=== PATIENT | female | born 1955 | race American Indian/Alaskan Native ===

== ENCOUNTER 2017-08-04 11:57 | Day surgery (SDC) | payer OTHER ==
[2017-08-01 19:28] VITALS: BMI 34.5
[2017-08-04 13:18] VITALS: BP 131/73; PULSE 75; TEMP 98
== END 2017-08-04 18:45 | disposition home or self-care (01) ==
LOC: JASU-SURG 11:57 → JSAMEDAYSX 11:57 → UNDOADMIN 11:57 → EDSTATUS 14:00 → UNDODISIN 18:45 → JASU-SURG 18:45
PROVIDERS: ATTEND Orthopaedic Surgery Orthopaedic Surgery of the Spine
PROC: 00NY0ZZ Release Lumbar Spinal Cord, Open Approach (ICD-10-PCS; principal; 2017-08-04)
DX: Z53.8 Procedure and treatment not carried out for other reasons (principal)
CPT/HCPCS: 36415; 84703; 86850; 86900; 86901

== ENCOUNTER 2017-09-08 06:15 | Inpatient (IN) | payer OTHER ==
[2017-09-05 09:18] VITALS: BMI 34.5
[2017-09-08] MEDS ORDERED: HEPARIN NA (PORCINE) 5,000 UNITS/ML 1ML VIAL ONE (07:42)
[2017-09-08] MEDS ORDERED: PROPOFOL 20 ML ONE ×12 (08:00→09:33)
[2017-09-08] MEDS ORDERED: MIDAZOLAM HCL 2 MG/2 ML SINGLE DOSE VIAL ONE (08:00)
[2017-09-08] MEDS ORDERED: ROCURONIUM BROMIDE 50 MG/5 ML VIAL ONE (08:00)
[2017-09-08] MEDS ORDERED: fentaNYL CITRATE 250 MCG/5 ML VIAL ONE (08:00)
[2017-09-08] MEDS ORDERED: SUCCINYLCHOLINE CHLORIDE 200 MG/10 ML VIAL ONE (08:00)
[2017-09-08] MEDS ORDERED: LIDOCAINE HCL/PF 2% SDV 5ML VIAL ONE (08:02)
[2017-09-08] MEDS ORDERED: DESFLURANE GAS 240 ML BOTTLE IH ONE (08:05)
[2017-09-08] MEDS ORDERED: ceFAZolin SODIUM 1 GM VIAL ONE ×3 (08:35→17:18)
[2017-09-08] MEDS ORDERED: CLINDAMYCIN PHOSPHATE 600 MG/4 ML VIAL ONE (08:35)
[2017-09-08] MEDS ORDERED: CLINDAMYCIN PHOSPHATE 600 MG/4 ML VIAL IVPB ONE (08:38)
[2017-09-08] MEDS ORDERED: ceFAZolin SODIUM 1 GM VIAL IVPB ONE ×3 (08:40→09:40)
[2017-09-08] MEDS ORDERED: SODIUM CHLORIDE 0.9% P/F 10 ML VIAL IJ ONE (09:36)
[2017-09-08] MEDS ORDERED: TRANEXAMIC ACID 1000 MG/10 ML VIAL ONE (09:38)
[2017-09-08] MEDS ORDERED: THROMBIN (BOVINE) 5,000 UNIT VIAL TP ONE (09:42)
[2017-09-08] MEDS ORDERED: DEXAMETHASONE SOD PHOSPHATE 4 MG/1 ML VIAL ONE (10:05)
[2017-09-08] MEDS ORDERED: ONDANSETRON 4 MG/2 ML VIAL ONE (10:05)
[2017-09-08] MEDS ORDERED: GLYCOPYRROLATE 0.2 MG/1 ML VIAL ONE (10:46)
[2017-09-08] MEDS ORDERED: NEOSTIGMINE METHYLSULFATE 0.5 MG/ML - 10 ML MDV ONE (10:46)
[2017-09-08] MEDS ORDERED: BENZOIN/ALOE VERA/STORAX/TOLU 58 ML BOTTLE ONE (11:04)
--- NOTE | 2017-09-08 11:57 | OP ---
Operative Note - Note: Operative Date: 09/08/17 Pre-Operative Diagnosis: Thoracic myelopathy Operation: 1. Laminectomy T12. 2. Revision Laminectomies L1-L3 Post-Operative Diagnosis: Same as Pre-op Surgeon: Brian Fernandez Burlap Worker: Levi Fernandez Anesthesiologist/CABLE RIGGER: Mark Anthony Sierra Anesthesia: General Estimated Blood Loss (mls): 75 Fluid Volume Replaced (mls): 1,000 Operative Report Dictated: Yes
--- NOTE | 2017-09-08 11:58 | PN ---
Progress Note (short form) - Note Progress Note: 62F s/p Laminectomy T12 & Revision Laminectomies L1-L3 POD #0. -Pain control: per anaesthesia team. -DVT PPx: - Mechanical only: ADAM's, SCD's. -Incentive spirometry. -PT/OT/Rehab, OOB. -WBAT B/L LE. -q4h B/L LE NV checks. -Post-op antibiotics x 2 doses. -NPO until flatus. -f/u AM labs. -d/c Umana catheter when ambulating. -Care per medical hospitalist team. -Discharge planning. -Will follow. Brian Fernandez MD (Orthopaedic Surgery).
[2017-09-08] MEDS ORDERED: ONDANSETRON 4 MG/2 ML VIAL IVPUSH PRN ×2 (12:05→12:10)
[2017-09-08] MEDS ORDERED: DEXAMETHASONE SOD PHOSPHATE 4 MG/1 ML VIAL IVPUSH PRN (12:10)
[2017-09-08] MEDS ORDERED: PROMETHAZINE HCL 25 MG/1 ML VIAL IVPB PRN (12:10)
[2017-09-08] MEDS ORDERED: PROMETHAZINE HCL 25 MG/1 ML VIAL IVPUSH PRN (12:10)
[2017-09-08] MEDS ORDERED: ACETAMINOPHEN 1000 MG/100 ML VIAL (NON FORMULARY) IVPB SCH (12:15)
[2017-09-08] MEDS: LACTATED RINGERS SOLUTION 1,000 ML IV SCH (12:15)
[2017-09-08] MEDS ORDERED: LACTATED RINGERS SOLUTION 1,000 ML IV SCH (12:15)
[2017-09-08] MEDS: ACETAMINOPHEN 1000 MG/100 ML VIAL (NON FORMULARY) IVPB PRN (12:21)
[2017-09-08] MEDS: HYDROmorphone *PCA* 10MG/50ML DISP.SYRIN PCA SCH (12:37)
[2017-09-08] MEDS: ceFAZolin 2 GRAM PREMIX BAG IVPB SCH (17:24)
[2017-09-08] MEDS ORDERED: PT OWN MED DRAWER 7, Y5N ONE (18:23)
--- NOTE | 2017-09-08 19:00 | OP ---
DATE OF OPERATION: 09/08/2017 SURGEON: Brian Fernandez MD LOGISTICS SUPPLY OFFICER: Levi Fernandez MD PREOPERATIVE DIAGNOSIS: Thoracolumbar spinal stenosis with associated radiculopathy and myelopathy. POSTOPERATIVE DIAGNOSIS: Thoracolumbar spinal stenosis with associated radiculopathy and myelopathy. OPERATION PERFORMED: 1. Laminectomy, T12. 2. Revision laminectomy, L1, L2, and L3. 3. Complex wound closure, 20 cm. PROCEDURE: Patient correctly identified, brought to the operating room, placed prone on a vascular table with gel rolls. Localization of the area of the thoracolumbar spine was noted. Previous fusion noted. The cage proximally was identified at the L2-3 level. Timeout was called. Imaging was available for intraoperative evaluation. With the patient in the prone position, all appropriate bony points were padded, brachial plexus free, belly free. A midline incision extended proximally through the old incision. Dissection was taken through the skin, subcutaneous tissue to the fascia. This was then opened, exposing the lamina of T11 down to L3. The L1, L2, and L3 levels that were dissected by performing oblique incisions under the muscle to get to the facet joints. Verification with a Zahraa and lateral fluoroscopic x-rays facilitated the exact level for resection which was T12 and then revision laminectomies at L1, L2, and L3. A curette was utilized to free the theca off the vertebral canal wall. The T12 lamina was resected in the plane between the bone and the ligamentum flavum. The dura was completely freed after tedious dissection at L1, L2, and L3 to tease the dura off the vertebral body wall itself. There were no complications. We left the facets structured in situ. This revealed the presence of no features of any deteriorated instability. Neural monitoring, which was performed, revealed left-sided abnormalities which, following decompression, revealed a dramatic improvement following this. The L5-S1 level was looked at with fluoroscopic imaging, going live, applying pressure to the sacral region. The construct originally seated at L5-S1 was completely stable. No complications. Wound was closed, muscle 1 Vicryl, fascia 1 Vicryl. Two intra osseous spinal lamina holes made for suture anchorage. Fascia 1 Vicryl, subcutaneous 1 and 2-0 Vicryl, skin 3-0 Monocryl with Steri-Strips. No drains. This completed a 20-cm complex wound closure. MD SARA Rodriguez/[id number] MTDD
[2017-09-08] MEDS ORDERED: HYDROmorphone *PCA* 10MG/50ML DISP.SYRIN PCA ONE (21:19)
[2017-09-09] MEDS: ceFAZolin 2 GRAM PREMIX BAG IVPB SCH (01:00)
[2017-09-09] MEDS ORDERED: PT OWN MED DRAWER 7, Y5N ONE (04:37)
[2017-09-09 07:09] LABS: HEMATOCRIT 36.7 % (32.4-45.2); HEMOGLOBIN 12.2 GM/dL (10.7-15.3); MCH 30.2 pg (25.7-33.7); MCHC 33.2 g/dl (32.0-36.0); MEAN CELL VOLUME 90.9 fl (80-96); MEAN PLT VOLUME 8.2 fl (7.5-11.1); PLATELET COUNT 245 K/MM3 (134-434); RBC 4.04 M/mm3 (3.60-5.2); RDW 13.2 % (11.6-15.6); WHITE BLOOD COUNT 8.5 K/mm3 (4.0-10.0)
[2017-09-09 07:29] LABS: CHLORIDE 101 mmol/L (98-107); POTASSIUM 4.6 mmol/L (3.5-5.1); SODIUM 138 mmol/L (136-145)
[2017-09-09 07:37] LABS: ANION GAP 7 (8-16); BLOOD UREA NITROGEN 14 mg/dL (7-18); CALCIUM 9.2 mg/dL (8.5-10.1); CO2 30 mmol/L (21-32); CREATININE 0.9 mg/dL (0.55-1.02); GLUCOSE,RANDOM 96 mg/dL (74-106)
[2017-09-09] MEDS: HYDROmorphone *PCA* 10MG/50ML DISP.SYRIN PCA SCH ×2 (08:29→12:36)
--- NOTE | 2017-09-09 09:01 | PN ---
Physical Exam: SUBJECTIVE: Patient seen and examined at bed side this morning. Complaining of pain at the surgical site. Has been using PIPE MAKER pump round the clock with additional Tylenol. Denies numbness, tingling sensation, no focal neurological deficit, chest pain, sob, cough, palpitation, abdominal pain, nausea or vomiting. Hasn't passed flatus. OBJECTIVE: Vital Signs Period Temp Pulse Resp BP Sys/Coles Pulse Ox Last 24 Hr 97.6 F-98.5 F 65-86 10-20 103-135/59-80 99-100 GENERAL: Middle aged female is lying in bed in right lateral position, awake, alert, and fully oriented, in no acute distress. HEAD: Normal with no signs of trauma. EYES: EOM intact, no pallor or icterus. ENT: Ears normal, dry mucous membranes. NECK: Supple. LUNGS: Breath sounds equal, clear to auscultation bilaterally, no wheezes, no crackles, no accessory muscle use. HEART: Regular rate and rhythm, S1, S2 without murmur. ABDOMEN: Soft, nontender, nondistended, normoactive bowel sounds, no guarding, no rebound, no hepatosplenomegaly, no masses. BACK: Dressing applied over the surgical site. EXTREMITIES: 2+ pulses, warm, well-perfused, no edema. NEUROLOGICAL: No facial droop, power 5/5 in all extremities. Normal speech, gait not observed. PSYCH: Normal mood, normal affect. SKIN: Warm, dry, normal turgor, no rashes or lesions noted Laboratory Results - last 24 hr 09/09/17 09/09/17 06:15 06:15 WBC 8.5 RBC 4.04 Hgb 12.2 Hct 36.7 MCV 90.9 MCH 30.2 MCHC 33.2 RDW 13.2 Plt Count 245 MPV 8.2 Sodium 138 Potassium 4.6 Chloride 101 Carbon Dioxide 30 Anion Gap 7 L BUN 14 Creatinine 0.9 Creat Clearance w eGFR > 60 Random Glucose 96 Calcium 9.2 Active Medications Generic Name Dose Route Start Last Admin Trade Name Freq PRN Reason Stop Dose Admin Acetaminophen 1,000 mg 09/08/17 12:12 09/08/17 12:21 Ofirmev Injection - IVPB 1,000 mg Q6H PRN Administration PAIN LEVEL 6-10 Dexamethasone Sodium Phosphate 4 mg 09/08/17 12:10 Decadron Injection - IVPUSH ONCE PRN NAUSEA AND/OR VOMITING Diphenhydramine HCl 12.5 mg 09/08/17 12:10 Benadryl Injection - IVPUSH ONCE PRN FOR ITCHING Hydromorphone HCl 0 mg 09/08/17 12:15 09/09/17 08:29 Dilaudid Brand Mgr - PIPE MAKER 09/15/17 12:11 30 mg PIPE MAKER JARRETT Administration Protocol Lactated Ringer's 1,000 mls @ 100 mls/hr 09/08/17 12:15 09/08/17 12:15 Lactated Ringers Solution IV 600 mls ASDIR JARRETT Administration Ondansetron HCl 4 mg 09/08/17 12:05 Zofran Injection IVPUSH Q6H PRN NAUSEA AND/OR VOMITING Ondansetron HCl 4 mg 09/08/17 12:10 Zofran Injection IVPUSH Q4H PRN NAUSEA AND/OR VOMITING Promethazine HCl 12.5 mg 09/08/17 12:10 Phenergan Injection - IVPB Q6H PRN NAUSEA AND/OR VOMITING ASSESSMENT/PLAN: Patient is a 62 year old female with significant past medical history of chronic back pain, chronic hip pain, Rheumatoid arthritis, Fibromyalgia, Anxiety came in to the hospital for an Elective surgery for back pain. # Thoracic myelopathy s/p Laminectomy T12 and Revision Laminectomies L1-L3----- POD 1 complaining of pain at the surgical site, as per the patient, PIPE MAKER pump is not helping her EBL 75 ml, fluid replaced 1000 ml Admitted in Med-Surg Hasn't passed flatus, Still NPO with ice chips Continue PIPE MAKER pump OOB to chair PT Incentive Spirometer Neuro checks Q4H Will d/c lim once she is out of bed # FEN IV LR @ 100 mls/hr Electrolytes WNL NPO except Ice chips # Prophylaxis For DVT: On SCD's For GI: Not indicated # Code Status: Full Code # Dispo: Admitted in Med-Surg. Discharge as per Dr. Fernandez Illness, Investigation and plan of care explained to the patient. She verbalized understanding. Case discussed with Dr. Gonzalez. Visit type - Emergency Visit Emergency Visit: Yes ED Registration Date: 09/08/17 Care time: The patient presented to the Emergency Department on the above date and was hospitalized for further evaluation of their emergent condition. - New Patient This patient is new to me today: Yes Date on this admission: 09/08/17 - Critical Care Critical Care patient: No - Discharge Referral Referred to [facility] Med P.C.: No
[2017-09-09] MEDS: ACETAMINOPHEN 1000 MG/100 ML VIAL (NON FORMULARY) IVPB PRN ×2 (12:13→17:57)
--- NOTE | 2017-09-09 12:30 | PN ---
Progress Note (short form) - Note Progress Note: Anesthesia postop note and pain management follow up 62 y/o F s/p GA revision of laminectomy, director loss prevention for postop pain management POD#1, aaox3, vss, pain fairly well controlled. Will continue director loss prevention. No anesthesia complications.
[2017-09-09] MEDS: LACTATED RINGERS SOLUTION 1,000 ML IV SCH ×2 (12:35→12:39)
--- NOTE | 2017-09-09 14:15 | PN ---
Teaching Attending Note Name of Resident: Tana Cifuentes ATTENDING PHYSICIAN STATEMENT I saw and evaluated the patient. I reviewed the resident's note and discussed the case with the resident. I agree with the resident's findings and plan as documented. SUBJECTIVE: Patient complains of pain at the incision site. OBJECTIVE: Vital Signs Period Temp Pulse Resp BP Sys/Coles Pulse Ox Last 24 Hr 97.6 F-98.5 F 66-93 10-20 104-135/58-80 99-100 HEART: S1S2, RRR LUNGS: Clear ABDOMEN: Obese, soft, non-tender, non-distended, normal BS EXTREMITIES: No edema Laboratory Results - last 24 hr 09/09/17 09/09/17 06:15 06:15 WBC 8.5 RBC 4.04 Hgb 12.2 Hct 36.7 MCV 90.9 MCH 30.2 MCHC 33.2 RDW 13.2 Plt Count 245 MPV 8.2 Sodium 138 Potassium 4.6 Chloride 101 Carbon Dioxide 30 Anion Gap 7 L BUN 14 Creatinine 0.9 Creat Clearance w eGFR > 60 Random Glucose 96 Calcium 9.2 Current Medications Generic Name Dose Route Start Last Admin Trade Name Freq PRN Reason Stop Dose Admin Acetaminophen 1,000 mg 09/08/17 12:12 09/09/17 12:13 Ofirmev Injection - IVPB 1,000 mg Q6H PRN Administration PAIN LEVEL 6-10 Dexamethasone Sodium Phosphate 4 mg 09/08/17 12:10 Decadron Injection - IVPUSH ONCE PRN NAUSEA AND/OR VOMITING Diphenhydramine HCl 12.5 mg 09/08/17 12:10 Benadryl Injection - IVPUSH ONCE PRN FOR ITCHING Hydromorphone HCl 10 mg 09/09/17 10:41 09/09/17 12:36 Dilaudid Retail Merchandising Specialist - FRAME POLISHER 09/15/17 12:11 Not Given FRAME POLISHER JARRETT Protocol Lactated Ringer's 1,000 mls @ 100 mls/hr 09/08/17 12:15 09/09/17 12:39 Lactated Ringers Solution IV 100 mls/hr ASDIR JARRETT Administration Ondansetron HCl 4 mg 09/08/17 12:05 Zofran Injection IVPUSH Q6H PRN NAUSEA AND/OR VOMITING Ondansetron HCl 4 mg 09/08/17 12:10 Zofran Injection IVPUSH Q4H PRN NAUSEA AND/OR VOMITING Promethazine HCl 12.5 mg 09/08/17 12:10 Phenergan Injection - IVPB Q6H PRN NAUSEA AND/OR VOMITING ASSESSMENT AND PLAN: This is a 62 year old woman with a history of chronic back pain, chronic hip pain, RA, fibromyalgia, anxiety who presented for spine surgery. 1. Thoracic myelopathy - s/p T12 laminectomy, L1-L3 revision laminectomies 09/08 - Pain control - Physical therapy 2. Rheumatoid arthritis 3. Fibromyalgia 4. Anxiety 5. Obesity with BMI 34.6
[2017-09-09] MEDS ORDERED: PANTOPRAZOLE SODIUM 40 MG VIAL IVPUSH ONE (20:25)
[2017-09-10] MEDS: ACETAMINOPHEN 1000 MG/100 ML VIAL (NON FORMULARY) IVPB PRN ×3 (00:01→21:47)
[2017-09-10] MEDS: HYDROmorphone *PCA* 10MG/50ML DISP.SYRIN PCA SCH ×2 (02:55→12:53)
[2017-09-10] MEDS ORDERED: ACETAMINOPHEN 325 MG TABLET (FP) PO ONE (06:31)
[2017-09-10 07:45] LABS: HEMATOCRIT 34.2 % (32.4-45.2); HEMOGLOBIN 11.4 GM/dL (10.7-15.3); MCH 30.2 pg (25.7-33.7); MCHC 33.5 g/dl (32.0-36.0); MEAN CELL VOLUME 90.2 fl (80-96); MEAN PLT VOLUME 8.4 fl (7.5-11.1); PLATELET COUNT 208 K/MM3 (134-434); RBC 3.79 M/mm3 (3.60-5.2); RDW 13.2 % (11.6-15.6); WHITE BLOOD COUNT 7.5 K/mm3 (4.0-10.0)
--- NOTE | 2017-09-10 07:49 | PN ---
Physical Exam: SUBJECTIVE: Patient seen and examined. On CHIEF GUARD pump. Still c/o of pain. Wants her home meds on board. Temperature spike up to 101.2 in past 24hrs. Said she is unable to eat without her nexium. OBJECTIVE: Vital Signs Period Temp Pulse Resp BP Sys/Coles Pulse Ox Last 24 Hr 97.9 F-101.2 F 82-93 16-18 95-127/50-75 98-99 Intake & Output 09/07/17 09/08/17 09/09/17 09/10/17 23:59 23:59 23:59 23:59 Intake Total 2232 1650 Output Total 3425 3900 Balance -1193 -2250 Vital Signs Temp 98.3 F 09/10/17 06:00 Pulse 93 H 09/10/17 06:00 Resp 18 09/10/17 06:00 BP 127/75 09/10/17 06:00 Pulse Ox 98 09/09/17 21:00 Intake & Output 09/09/17 09/09/17 09/10/17 11:59 23:59 11:59 Intake Total 100 1550 Output Total 3900 Balance 100 -2350 Intake: IV 1200 Lactated Ringers Solution 1200 1,000 ml @ 100 mls/hr IV ASDIR [facility] Rx#: [id number] IVPB 100 100 Oral 250 Output: Urine 3900 Lim 2500 Void 1400 Other: Voiding Method Bedside Commode Bowel Movement No No GENERAL: The patient is awake, alert, and fully oriented, lying in bed LUNGS: Breath sounds equal, clear to auscultation bilaterally, HEART: Regular rate and rhythm, S1, S2 without murmur, rub or gallop. ABDOMEN: Soft, nontender, nondistended, normoactive bowel sounds EXTREMITIES: 2+ pulses, warm, well-perfused, no edema. Able to move all limbs. NEUROLOGICAL: AAOx3. Intact sensations. Normal tone and strength globally. Musculoskeletal: Back surgical dressing from cervical vertebrae to lumbar area, dry and intact CBC, BMP 09/10/17 06:30 09/10/17 06:30 Laboratory Last Values WBC 8.5 K/mm3 (4.0-10.0) 09/09/17 06:15 RBC 4.04 M/mm3 (3.60-5.2) 09/09/17 06:15 Hgb 12.2 GM/dL (10.7-15.3) 09/09/17 06:15 Hct 36.7 % (32.4-45.2) 09/09/17 06:15 MCV 90.9 fl (80-96) 09/09/17 06:15 MCH 30.2 pg (25.7-33.7) 09/09/17 06:15 MCHC 33.2 g/dl (32.0-36.0) 09/09/17 06:15 RDW 13.2 % (11.6-15.6) 09/09/17 06:15 Plt Count 245 K/MM3 (134-434) 09/09/17 06:15 MPV 8.2 fl (7.5-11.1) 09/09/17 06:15 Sodium 138 mmol/L (136-145) 09/09/17 06:15 Potassium 4.6 mmol/L (3.5-5.1) 09/09/17 06:15 Chloride 101 mmol/L (98-107) 09/09/17 06:15 Carbon Dioxide 30 mmol/L (21-32) 09/09/17 06:15 Anion Gap 7 (8-16) L 09/09/17 06:15 BUN 14 mg/dL (7-18) 09/09/17 06:15 Creatinine 0.9 mg/dL (0.55-1.02) 09/09/17 06:15 Creat Clearance w eGFR > 60 (>60) 09/09/17 06:15 Random Glucose 96 mg/dL (74-106) 09/09/17 06:15 Calcium 9.2 mg/dL (8.5-10.1) 09/09/17 06:15 Blood Type A POSITIVE 09/08/17 06:25 Antibody Screen Negative 09/08/17 06:25 Current Medications Acetaminophen (Ofirmev Injection -) 1,000 mg IVPB Q6H PRN PRN Reason: PAIN LEVEL 6-10 Last Admin: 09/10/17 21:47 Dose: 1,000 mg Cyclobenzaprine HCl (Flexeril -) 10 mg PO HS JARRETT Last Admin: 09/10/17 21:41 Dose: 10 mg Dexamethasone Sodium Phosphate (Decadron Injection -) 4 mg IVPUSH ONCE PRN PRN Reason: NAUSEA AND/OR VOMITING Last Admin: 09/10/17 06:57 Dose: 4 mg Diphenhydramine HCl (Benadryl Injection -) 12.5 mg IVPUSH ONCE PRN PRN Reason: FOR ITCHING Docusate Sodium (Colace -) 100 mg PO BID PRN PRN Reason: CONSTIPATION Gabapentin (Neurontin -) 300 mg PO DAILY [facility] Last Admin: 09/10/17 09:38 Dose: 300 mg Hydromorphone HCl (Dilaudid Space Engineer -) 10 mg CHIEF GUARD CHIEF GUARD [facility]; Protocol Stop: 09/15/17 12:11 Last Admin: 09/11/17 02:14 Dose: 10 mg Lactated Ringer's (Lactated Ringers Solution) 1,000 mls @ 100 mls/hr IV ASDIR [facility] Last Admin: 09/10/17 21:43 Dose: 100 mls/hr Ondansetron HCl (Zofran Injection) 4 mg IVPUSH Q6H PRN PRN Reason: NAUSEA AND/OR VOMITING Ondansetron HCl (Zofran Injection) 4 mg IVPUSH Q4H PRN PRN Reason: NAUSEA AND/OR VOMITING Pantoprazole Sodium (Protonix -) 40 mg PO DAILY [facility] Last Admin: 09/10/17 09:38 Dose: 40 mg Polyethylene Glycol (Miralax (For Daily Use) -) 17 gm PO DAILY [facility] Last Admin: 09/10/17 09:38 Dose: 17 gm Promethazine HCl (Phenergan Injection -) 12.5 mg IVPB Q6H PRN PRN Reason: NAUSEA AND/OR VOMITING Senna (Senna -) 2 tab PO HS [facility] Last Admin: 09/10/17 21:42 Dose: 2 tab Zolpidem Tartrate (Ambien -) 5 mg PO HS PRN PRN Reason: INSOMNIA Last Admin: 09/10/17 23:01 Dose: 5 mg Ambulatory Orders Acetaminophen [Tylenol] 650 mg PO PRN PRN 08/01/17 Celecoxib [Celebrex] 200 mg PO BID 08/01/17 Cyclobenzaprine HCl [Flexeril 10 mg] 10 mg PO HS 08/01/17 Esomeprazole Magnesium [Nexium 24Hr] 40 mg PO DAILY 08/01/17 Gabapentin [Neurontin] 300 mg PO DAILY 08/01/17 Oxycodone HCl [Oxycodone HCl ER] 30 mg PO PRN PRN 08/01/17 Zolpidem Tartrate [Ambien] 5 mg PO HS 08/01/17 ASSESSMENT/PLAN: Patient is a 62 year old female with significant past medical history of chronic back pain, chronic hip pain, Rheumatoid arthritis, Fibromyalgia, Anxiety came in to the hospital for an Elective surgery for back pain. # Thoracic myelopathy s/p Laminectomy T12 and Revision Laminectomies L1-L3 POD 2 complaining of pain at the surgical site, as per the patient, CHIEF GUARD pump is not helping her, cont home flexeril, neurontin EBL 75 ml, fluid replaced 1000 ml Admitted in Med-Surg Yet to move bowel-colace and senna Continue CHIEF GUARD pump OOB to chair PT Incentive Spirometer Neuro checks Q4H Will d/c lim once she is out of bed #Post op fever Could be due to atelectasis Encourage incentive spirometry PT OOB as tolerated Monitor Temp # Constipation Could be due to chronic opiate use/pain Bowel regimen-colace and senna #GERD Uses nexium at home Given protonix- says protonix does not work for her Monitor #Chronic pain Pt has had 3 previous back surgeries Cont CHIEF GUARD pump resume home flexeril, neurontin # FEN IV LR @ 100 mls/hr Electrolytes WNL Regular diet as tolerated #Dispo: Dispo planning per SX Visit type - Emergency Visit Emergency Visit: No - New Patient This patient is new to me today: Yes Date on this admission: 09/11/17 - Critical Care Critical Care patient: No - Discharge Referral Referred to [facility] Med P.C.: No
[2017-09-10 08:09] LABS: ANION GAP 7 (8-16); BLOOD UREA NITROGEN 7 mg/dL (7-18); CALCIUM 8.6 mg/dL (8.5-10.1); CHLORIDE 100 mmol/L (98-107); CO2 32 mmol/L (21-32); CREATININE 0.7 mg/dL (0.55-1.02); GLUCOSE,RANDOM 91 mg/dL (74-106); POTASSIUM 3.8 mmol/L (3.5-5.1); SODIUM 139 mmol/L (136-145)
[2017-09-10] MEDS ORDERED: DOCUSATE SODIUM 100 MG CAPSULE (FP) PO PRN (08:20)
[2017-09-10] MEDS: GABAPENTIN 300 MG CAPSULE (FP) PO SCH (09:38)
[2017-09-10] MEDS: POLYETHYLENE GLYCOL 3350 119 GM BTL PO SCH (09:38)
--- NOTE | 2017-09-10 09:39 | PN ---
Progress Note, Physician Chief Complaint: Day #2 s/p revision laminectomy - Current Medication List Current Medications: Active Medications Cyclobenzaprine HCl (Flexeril -) 10 mg PO HS JARRETT Dexamethasone Sodium Phosphate (Decadron Injection -) 4 mg IVPUSH ONCE PRN PRN Reason: NAUSEA AND/OR VOMITING Last Admin: 09/10/17 06:57 Dose: 4 mg Diphenhydramine HCl (Benadryl Injection -) 12.5 mg IVPUSH ONCE PRN PRN Reason: FOR ITCHING Docusate Sodium (Colace -) 100 mg PO BID PRN PRN Reason: CONSTIPATION Gabapentin (Neurontin -) 300 mg PO DAILY [facility] Hydromorphone HCl (Dilaudid Prevocational/Rehabilitation Counselor -) 10 mg PREPRESS SPECIALIST [facility]; Protocol Stop: 09/15/17 12:11 Last Admin: 09/10/17 02:55 Dose: 10 mg Lactated Ringer's (Lactated Ringers Solution) 1,000 mls @ 100 mls/hr IV ASDIR JARRETT Last Admin: 09/09/17 12:39 Dose: 100 mls/hr Ondansetron HCl (Zofran Injection) 4 mg IVPUSH Q6H PRN PRN Reason: NAUSEA AND/OR VOMITING Ondansetron HCl (Zofran Injection) 4 mg IVPUSH Q4H PRN PRN Reason: NAUSEA AND/OR VOMITING Pantoprazole Sodium (Protonix -) 40 mg PO DAILY [facility] Polyethylene Glycol (Miralax (For Daily Use) -) 17 gm PO DAILY [facility] Promethazine HCl (Phenergan Injection -) 12.5 mg IVPB Q6H PRN PRN Reason: NAUSEA AND/OR VOMITING Senna (Senna -) 2 tab PO HS [facility] Zolpidem Tartrate (Ambien -) 5 mg PO HS PRN PRN Reason: INSOMNIA - Objective Vital Signs: Vital Signs Temperature 98.3 F 09/10/17 06:00 Pulse Rate 93 H 09/10/17 06:00 Respiratory Rate 18 09/10/17 06:00 Blood Pressure 127/75 09/10/17 06:00 O2 Sat by Pulse Oximetry (%) 98 09/09/17 21:00 Labs: CBC, BMP 09/10/17 06:30 09/10/17 06:30 Assessment/Plan Some incisional pain, but overall good pain control; continue PREPRESS SPECIALIST
[2017-09-10] MEDS: LACTATED RINGERS SOLUTION 1,000 ML IV SCH ×3 (09:41→21:43)
[2017-09-10] MEDS ORDERED: PANTOPRAZOLE 40 MG TABLET (FP) PO SCH (10:00)
--- NOTE | 2017-09-10 18:03 | PN ---
Teaching Attending Note Name of Resident: Maliha Donovan ATTENDING PHYSICIAN STATEMENT I saw and evaluated the patient. I reviewed the resident's note and discussed the case with the resident. I agree with the resident's findings and plan as documented with exceptions below. SUBJECTIVE: Patient seen and examined. sleeping, pain well controlled, reports hip spasms while ambulating limiting her working with PT. tolerating diet well. OBJECTIVE: Vital Signs Period Temp Pulse Resp BP Sys/Coles Pulse Ox Last 24 Hr 98.3 F-101.2 F 87-114 16-87 95-136/8-89 98-98 Intake & Output 09/07/17 09/08/17 09/09/17 09/10/17 23:59 23:59 23:59 23:59 Intake Total 2232 1650 Output Total 3426 3900 Balance -1193 -2250 general: lying in bed in no acute distress chest: CTAB, no rales or wheezing Musculoskeletal: vertical dressing along thorolumbar spinal region, no surrounding erythema or tenderness Extremities; no edema Home Medications Medication Instructions Recorded Acetaminophen [Tylenol] 650 mg PO PRN PRN 08/01/17 Celecoxib [Celebrex] 200 mg PO BID 08/01/17 Cyclobenzaprine HCl [Flexeril 10 10 mg PO HS 08/01/17 mg] Esomeprazole Magnesium [Nexium 40 mg PO DAILY 08/01/17 24Hr] Gabapentin [Neurontin] 300 mg PO DAILY 08/01/17 Oxycodone HCl [Oxycodone HCl ER] 30 mg PO PRN PRN 08/01/17 Zolpidem Tartrate [Ambien] 5 mg PO HS 08/01/17 Active Medications Acetaminophen (Ofirmev Injection -) 1,000 mg IVPB Q6H PRN PRN Reason: PAIN LEVEL 6-10 Last Admin: 09/10/17 14:40 Dose: 1,000 mg Cyclobenzaprine HCl (Flexeril -) 10 mg PO HS [facility] Dexamethasone Sodium Phosphate (Decadron Injection -) 4 mg IVPUSH ONCE PRN PRN Reason: NAUSEA AND/OR VOMITING Last Admin: 09/10/17 06:57 Dose: 4 mg Diphenhydramine HCl (Benadryl Injection -) 12.5 mg IVPUSH ONCE PRN PRN Reason: FOR ITCHING Docusate Sodium (Colace -) 100 mg PO BID PRN PRN Reason: CONSTIPATION Gabapentin (Neurontin -) 300 mg PO DAILY [facility] Last Admin: 09/10/17 09:38 Dose: 300 mg Hydromorphone HCl (Dilaudid Studio Engineer -) 10 mg RELAY ASSOCIATE RELAY ASSOCIATE [facility]; Protocol Stop: 09/15/17 12:11 Last Admin: 09/10/17 12:53 Dose: Not Given Lactated Ringer's (Lactated Ringers Solution) 1,000 mls @ 100 mls/hr IV ASDIR [facility] Last Admin: 09/10/17 12:52 Dose: Not Given Ondansetron HCl (Zofran Injection) 4 mg IVPUSH Q6H PRN PRN Reason: NAUSEA AND/OR VOMITING Ondansetron HCl (Zofran Injection) 4 mg IVPUSH Q4H PRN PRN Reason: NAUSEA AND/OR VOMITING Pantoprazole Sodium (Protonix -) 40 mg PO DAILY [facility] Last Admin: 09/10/17 09:38 Dose: 40 mg Polyethylene Glycol (Miralax (For Daily Use) -) 17 gm PO DAILY [facility] Last Admin: 09/10/17 09:38 Dose: 17 gm Promethazine HCl (Phenergan Injection -) 12.5 mg IVPB Q6H PRN PRN Reason: NAUSEA AND/OR VOMITING Senna (Senna -) 2 tab PO HS [facility] Zolpidem Tartrate (Ambien -) 5 mg PO HS PRN PRN Reason: INSOMNIA Laboratory Results - last 24 hr 09/10/17 09/10/17 06:30 06:30 WBC 7.5 RBC 3.79 Hgb 11.4 Hct 34.2 MCV 90.2 MCH 30.2 MCHC 33.5 RDW 13.2 Plt Count 208 MPV 8.4 Sodium 139 Potassium 3.8 Chloride 100 Carbon Dioxide 32 Anion Gap 7 L BUN 7 Creatinine 0.7 Creat Clearance w eGFR > 60 Random Glucose 91 Calcium 8.6 ASSESSMENT AND PLAN: 62 yof with pMhx of chronic back pain, chronic hip pain, Rheumatoid arthritis, Fibromyalgia, Anxiety came in to the hospital for an Elective surgery for back pain. - Thoracic myelopathy s/p Laminectomy T12 and Revision Laminectomies L1-L3 09/08) -fever, suspect atelectasis -Chronic hip pain -Rheumatoid arthritis -Fibromyalgia -Anxiety Plan: RELAY ASSOCIATE for pain control, d/c in 24-48 hours. Resume flexeril per patient request. No further fevers, encourage ambulation and incentive spirometry. Furhter w/u if recurrent fevers or new concerns. Currently with no new focal symptoms. DVTPPx per spine surgery DIspo pending clinical improvement, plan discussed with patient in detail, all questions answered.
[2017-09-10] MEDS: CYCLOBENZAPRINE HCL 10 MG TABLET (FP) PO SCH (21:41)
[2017-09-10] MEDS: SENNOSIDES 8.6MG TABLET (FP) PO SCH (21:42)
[2017-09-10] MEDS: ZOLPIDEM TARTRATE 5 MG TABLET PO PRN (23:01)
[2017-09-11] MEDS: HYDROmorphone *PCA* 10MG/50ML DISP.SYRIN PCA SCH (02:14)
[2017-09-11 07:45] LABS: HEMATOCRIT 31.9 % (32.4-45.2); HEMOGLOBIN 10.8 GM/dL (10.7-15.3); MCH 30.4 pg (25.7-33.7); MCHC 33.8 g/dl (32.0-36.0); MEAN CELL VOLUME 90.2 fl (80-96); MEAN PLT VOLUME 8.7 fl (7.5-11.1); PLATELET COUNT 227 K/MM3 (134-434); RBC 3.53 M/mm3 (3.60-5.2); RDW 12.8 % (11.6-15.6); WHITE BLOOD COUNT 7.2 K/mm3 (4.0-10.0)
[2017-09-11 08:46] LABS: CHLORIDE 101 mmol/L (98-107); POTASSIUM 4.1 mmol/L (3.5-5.1); SODIUM 140 mmol/L (136-145)
[2017-09-11 09:21] LABS: ALBUMIN 2.6 g/dl (3.4-5.0); ALK PHOS 105 U/L (45-117); ANION GAP 9 (8-16); BILIRUBIN,TOTAL 0.6 mg/dL (0.2-1.0); BLOOD UREA NITROGEN 14 mg/dL (7-18); CALCIUM 8.4 mg/dL (8.5-10.1); CO2 30 mmol/L (21-32); CREATININE 0.6 mg/dL (0.55-1.02); GLUCOSE,RANDOM 86 mg/dL (74-106); MAGNESIUM 1.7 mg/dL (1.8-2.4); PHOSPHOROUS 2.9 mg/dL (2.5-4.9); SGOT/AST 33 U/L (15-37); SGPT/ALT 54 U/L (12-78); TOT PROT 5.8 g/dl (6.4-8.2)
--- NOTE | 2017-09-11 10:02 | PN ---
Progress Note (short form) - Note Progress Note: Pain Follow up POD#3 Discontinue IV UTILIZATION MANAGER. oral oxycodone can be started po q4. Janet Pinedo MD.
[2017-09-11] MEDS ORDERED: oxyCODONE HCL 5 MG TABLET PO ONE (10:30)
[2017-09-11] MEDS ORDERED: ACETAMINOPHEN 325 MG TABLET (FP) PO ONE (10:30)
[2017-09-11] MEDS: PANTOPRAZOLE 40 MG TABLET (FP) PO SCH (10:58)
[2017-09-11] MEDS: GABAPENTIN 300 MG CAPSULE (FP) PO SCH (10:58)
[2017-09-11] MEDS: POLYETHYLENE GLYCOL 3350 119 GM BTL PO SCH (10:58)
[2017-09-11] MEDS: ACETAMINOPHEN 325 MG TABLET (FP) PO PRN ×2 (10:59→20:16)
[2017-09-11] MEDS: oxyCODONE HCL 5 MG TABLET PO PRN ×3 (11:00→20:14)
--- NOTE | 2017-09-11 15:21 | PN ---
Teaching Attending Note Name of Resident: Maliha Donovan ATTENDING PHYSICIAN STATEMENT I saw and evaluated the patient. I reviewed the resident's note and discussed the case with the resident. I agree with the resident's findings and plan as documented with exceptions below. SUBJECTIVE: Patient seen and examined. back pain improved, having a BM, tolerating diet well. OBJECTIVE: Vital Signs Period Temp Pulse Resp BP Sys/Coles Pulse Ox Last 24 Hr 98.2 F-98.9 F 65-100 18-20 114-132/66-69 98 Intake & Output 09/08/17 09/09/17 09/10/17 09/11/17 23:59 23:59 23:59 23:59 Intake Total 2232 1650 250 Output Total 3425 3900 350 Balance -1193 -2250 -100 General: sitting on commode, no acute distress Home Medications Medication Instructions Recorded Acetaminophen [Tylenol] 650 mg PO PRN PRN 08/01/17 Celecoxib [Celebrex] 200 mg PO BID 08/01/17 Cyclobenzaprine HCl [Flexeril 10 10 mg PO 08/01/17 mg] Esomeprazole Magnesium [Nexium 40 mg PO DAILY 08/01/17 24Hr] Gabapentin [Neurontin] 300 mg PO DAILY 08/01/17 Oxycodone HCl [Oxycodone HCl ER] 30 mg PO PRN PRN 08/01/17 Zolpidem Tartrate [Ambien] 5 mg PO HS 08/01/17 Active Medications Acetaminophen (Tylenol -) 650 mg PO Q4H PRN PRN Reason: MODERATE PAIN Last Admin: 09/11/17 10:59 Dose: 650 mg Cyclobenzaprine HCl (Flexeril -) 10 mg PO [facility] Last Admin: 09/10/17 21:41 Dose: 10 mg Dexamethasone Sodium Phosphate (Decadron Injection -) 4 mg IVPUSH ONCE PRN PRN Reason: NAUSEA AND/OR VOMITING Last Admin: 09/10/17 06:57 Dose: 4 mg Docusate Sodium (Colace -) 100 mg PO BID PRN PRN Reason: CONSTIPATION Gabapentin (Neurontin -) 300 mg PO DAILY [facility] Last Admin: 09/11/17 10:58 Dose: 300 mg Ondansetron HCl (Zofran Injection) 4 mg IVPUSH Q6H PRN PRN Reason: NAUSEA AND/OR VOMITING Ondansetron HCl (Zofran Injection) 4 mg IVPUSH Q4H PRN PRN Reason: NAUSEA AND/OR VOMITING Oxycodone HCl (Roxicodone -) 10 mg PO Q4H PRN PRN Reason: PAIN LEVEL 4 - 6 Last Admin: 09/11/17 11:00 Dose: 10 mg Pantoprazole Sodium (Protonix -) 40 mg PO DAILY [facility] Last Admin: 09/11/17 10:58 Dose: 40 mg Polyethylene Glycol (Miralax (For Daily Use) -) 17 gm PO DAILY [facility] Last Admin: 09/11/17 10:58 Dose: 17 gm Promethazine HCl (Phenergan Injection -) 12.5 mg IVPB Q6H PRN PRN Reason: NAUSEA AND/OR VOMITING Senna (Senna -) 2 tab PO HS [facility] Last Admin: 09/10/17 21:42 Dose: 2 tab Zolpidem Tartrate (Ambien -) 5 mg PO HS PRN PRN Reason: INSOMNIA Last Admin: 09/10/17 23:01 Dose: 5 mg Laboratory Results - last 24 hr 09/11/17 09/11/17 06:40 06:40 WBC 7.2 RBC 3.53 L Hgb 10.8 Hct 31.9 L MCV 90.2 MCH 30.4 MCHC 33.8 RDW 12.8 Plt Count 227 MPV 8.7 Sodium 140 Potassium 4.1 Chloride 101 Carbon Dioxide 30 Anion Gap 9 BUN 14 Creatinine 0.6 Creat Clearance w eGFR > 60 Random Glucose 86 Calcium 8.4 L Phosphorus 2.9 Magnesium 1.7 L Total Bilirubin 0.6 AST 33 ALT 54 Alkaline Phosphatase 105 Total Protein 5.8 L Albumin 2.6 L ASSESSMENT AND PLAN: 62 yof with pMhx of chronic back pain, chronic hip pain, Rheumatoid arthritis, Fibromyalgia, Anxiety came in to the hospital for an Elective surgery for back pain. 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 Bowel regimen. Reconcile home meds, resume once off [employer]PER[employer]. No further fevers, encourage ambulation and incentive spirometry DVTPPx per spine surgery DIspo home d/c later today or tomorrow if no concerns. Cleared by Dr. Calloway for d.c.
--- NOTE | 2017-09-11 16:09 | PN ---
Physical Exam: SUBJECTIVE: Patient seen and examined. Says surgical back pain is improved, but she has chronic pain in R hip. TELLER HEAD is not working for the chronic pain. Yet to move bowel. Has been OOB and into chair and using incentive spirometry. No fevers overnight. Able to eat regular diet OBJECTIVE: Vital Signs Period Temp Pulse Resp BP Sys/Coles Pulse Ox Last 24 Hr 98.2 F-98.9 F 65-100 18-20 100-132/53-69 98 Vital Signs Temp 98.6 F 09/11/17 15:36 Pulse 83 09/11/17 15:36 Resp 18 09/11/17 15:36 BP 100/53 09/11/17 15:36 Pulse Ox 98 09/11/17 09:00 Intake & Output 09/10/17 09/11/17 09/11/17 23:59 11:59 23:59 Intake Total 600 Balance 600 Intake: Oral 600 Other: Voiding Method Bedside Commode Bedside Commode Bedside Commode # Unmeasured Voids Void 2 Bowel Movement Yes Intake & Output 09/08/17 09/09/17 09/10/17 09/11/17 23:59 23:59 23:59 23:59 Intake Total 2232 1650 250 600 Output Total 3425 3900 350 Balance -1193 -2250 -100 600 GENERAL: The patient is awake, alert, and fully oriented, in no acute distress. LUNGS: Breath sounds equal, clear to auscultation bilaterally HEART: Regular rate and rhythm, S1, S2 without murmu ABDOMEN: Soft, nontender, nondistended, normoactive bowel sounds EXTREMITIES: 2+ pulses, warm, well-perfused, no edema. NEUROLOGICAL: AAO x3. Normal sensation bilaterally. Absent tingling. Able to move all extremities Musculoskeletal: Surgical dressing over spine posteriorly from cervical to lumbar region intact, no leaks or drains, no tenderness noted. Laboratory Results - last 24 hr 09/11/17 09/11/17 06:40 06:40 WBC 7.2 RBC 3.53 L Hgb 10.8 Hct 31.9 L MCV 90.2 MCH 30.4 MCHC 33.8 RDW 12.8 Plt Count 227 MPV 8.7 Sodium 140 Potassium 4.1 Chloride 101 Carbon Dioxide 30 Anion Gap 9 BUN 14 Creatinine 0.6 Creat Clearance w eGFR > 60 Random Glucose 86 Calcium 8.4 L Phosphorus 2.9 Magnesium 1.7 L Total Bilirubin 0.6 AST 33 ALT 54 Alkaline Phosphatase 105 Total Protein 5.8 L Albumin 2.6 L Active Medications Generic Name Dose Route Start Last Admin Trade Name Freq PRN Reason Stop Dose Admin Acetaminophen 650 mg 09/11/17 10:28 09/11/17 10:59 Tylenol - PO 650 mg Q4H PRN Administration MODERATE PAIN Cyclobenzaprine HCl 10 mg 09/10/17 22:00 09/10/17 21:41 Flexeril - PO 10 mg HS JARRETT Administration Dexamethasone Sodium Phosphate 4 mg 09/08/17 12:10 09/10/17 06:57 Decadron Injection - IVPUSH 4 mg ONCE PRN Administration NAUSEA AND/OR VOMITING Docusate Sodium 100 mg 09/10/17 08:20 Colace - PO BID PRN CONSTIPATION Gabapentin 300 mg 09/10/17 10:00 09/11/17 10:58 Neurontin - PO 300 mg DAILY JARRETT Administration Ondansetron HCl 4 mg 09/08/17 12:05 Zofran Injection IVPUSH Q6H PRN NAUSEA AND/OR VOMITING Ondansetron HCl 4 mg 09/08/17 12:10 Zofran Injection IVPUSH Q4H PRN NAUSEA AND/OR VOMITING Oxycodone HCl 10 mg 09/11/17 10:24 09/11/17 16:05 Roxicodone - PO 10 mg Q4H PRN Administration PAIN LEVEL 4 - 6 Pantoprazole Sodium 40 mg 09/11/17 10:00 09/11/17 10:58 Protonix - PO 40 mg DAILY JARRETT Administration Polyethylene Glycol 17 gm 09/10/17 10:00 09/11/17 10:58 Miralax (For Daily Use) - PO 17 gm DAILY JARRETT Administration Promethazine HCl 12.5 mg 09/08/17 12:10 Phenergan Injection - IVPB Q6H PRN NAUSEA AND/OR VOMITING Senna 2 tab 09/10/17 22:00 09/10/17 21:42 Senna - PO 2 tab HS JARRETT Administration Zolpidem Tartrate 5 mg 09/10/17 22:00 09/10/17 23:01 Ambien - PO 5 mg HS PRN Administration INSOMNIA Current Medications Acetaminophen (Tylenol -) 650 mg PO Q4H PRN PRN Reason: MODERATE PAIN Last Admin: 09/11/17 10:59 Dose: 650 mg Celecoxib (Celebrex -) 200 mg PO BID [facility] Cyclobenzaprine HCl (Flexeril -) 10 mg PO HS [facility] Last Admin: 09/10/17 21:41 Dose: 10 mg Dexamethasone Sodium Phosphate (Decadron Injection -) 4 mg IVPUSH ONCE PRN PRN Reason: NAUSEA AND/OR VOMITING Last Admin: 09/10/17 06:57 Dose: 4 mg Docusate Sodium (Colace -) 100 mg PO BID PRN PRN Reason: CONSTIPATION Gabapentin (Neurontin -) 300 mg PO DAILY [facility] Last Admin: 09/11/17 10:58 Dose: 300 mg Ondansetron HCl (Zofran Injection) 4 mg IVPUSH Q6H PRN PRN Reason: NAUSEA AND/OR VOMITING Ondansetron HCl (Zofran Injection) 4 mg IVPUSH Q4H PRN PRN Reason: NAUSEA AND/OR VOMITING Oxycodone HCl (Roxicodone -) 10 mg PO Q4H PRN PRN Reason: PAIN LEVEL 4 - 6 Last Admin: 09/11/17 16:05 Dose: 10 mg Pantoprazole Sodium (Protonix -) 40 mg PO DAILY [facility] Last Admin: 09/11/17 10:58 Dose: 40 mg Polyethylene Glycol (Miralax (For Daily Use) -) 17 gm PO DAILY [facility] Last Admin: 09/11/17 10:58 Dose: 17 gm Promethazine HCl (Phenergan Injection -) 12.5 mg IVPB Q6H PRN PRN Reason: NAUSEA AND/OR VOMITING Senna (Senna -) 2 tab PO HS [facility] Last Admin: 09/10/17 21:42 Dose: 2 tab Zolpidem Tartrate (Ambien -) 5 mg PO HS PRN PRN Reason: INSOMNIA Last Admin: 09/10/17 23:01 Dose: 5 mg Ambulatory Orders Acetaminophen [Tylenol] 650 mg PO PRN PRN 08/01/17 Celecoxib [Celebrex] 200 mg PO BID 08/01/17 Cyclobenzaprine HCl [Flexeril 10 mg] 10 mg PO HS 08/01/17 Esomeprazole Magnesium [Nexium 24Hr] 40 mg PO DAILY 08/01/17 Gabapentin [Neurontin] 300 mg PO DAILY 08/01/17 Oxycodone HCl [Oxycodone HCl ER] 30 mg PO PRN PRN 08/01/17 Zolpidem Tartrate [Ambien] 5 mg PO HS 08/01/17 ASSESSMENT/PLAN: Patient is a 62 year old female with significant past medical history of chronic back pain, chronic hip pain, Rheumatoid arthritis, Fibromyalgia, Anxiety came in to the hospital for an Elective surgery for back pain. # Thoracic myelopathy s/p Laminectomy T12 and Revision Laminectomies L1-L3 POD 3 Improved pain at the surgical site, as per the patient, TELLER HEAD pump is not helping her- dc- TELLER HEAD cont home flexeril, neurontin EBL 75 ml, fluid replaced 1000 ml Moved bowel today-colace and senna OOB to chair PT Incentive Spirometer #Post op fever Could be due to atelectasis Encourage incentive spirometry PT OOB as tolerated Monitor Temp # Constipation Could be due to chronic opiate use/pain Bowel regimen-colace and senna #GERD Uses nexium at home Given protonix- says protonix does not work for her Monitor #Chronic pain Pt has had 3 previous back surgeries resume home flexeril, neurontin # FEN Electrolytes WNL Regular diet as tolerated #Dispo: Dispo planning per SX Visit type - Emergency Visit Emergency Visit: No - New Patient This patient is new to me today: No - Critical Care Critical Care patient: No - Discharge Referral Referred to [facility] Med P.C.: No
[2017-09-11] MEDS: SENNOSIDES 8.6MG TABLET (FP) PO SCH (21:38)
[2017-09-11] MEDS: CYCLOBENZAPRINE HCL 10 MG TABLET (FP) PO SCH (21:38)
[2017-09-11] MEDS: CELECOXIB 200 MG CAPSULE PO SCH (21:39)
[2017-09-11] MEDS: ZOLPIDEM TARTRATE 5 MG TABLET PO PRN (22:27)
[2017-09-12] MEDS: oxyCODONE HCL 5 MG TABLET PO PRN ×3 (02:11→10:35)
[2017-09-12 08:16] LABS: BASO % 0.5 % (0-2.0); EOS % 3.1 % (0-4.5); HEMATOCRIT 33.7 % (32.4-45.2); HEMOGLOBIN 11.5 GM/dL (10.7-15.3); LYMPH % 31.4 % (8-40); MCH 30.6 pg (25.7-33.7); MEAN PLT VOLUME 8.3 fl (7.5-11.1); MONO % 8.6 % (3.8-10.2); NEUT % 56.4 % (42.8-82.8); PLATELET COUNT 284 K/MM3 (134-434); RBC 3.75 M/mm3 (3.60-5.2); RDW 13.1 % (11.6-15.6); WHITE BLOOD COUNT 4.9 K/mm3 (4.0-10.0)
[2017-09-12 09:25] LABS: ALK PHOS 101 U/L (45-117); ANION GAP 7 (8-16); BILIRUBIN,TOTAL 0.5 mg/dL (0.2-1.0); BLOOD UREA NITROGEN 16 mg/dL (7-18); CALCIUM 8.8 mg/dL (8.5-10.1); CHLORIDE 108 mmol/L (98-107); CO2 29 mmol/L (21-32); CREATININE 0.8 mg/dL (0.55-1.02); GLUCOSE,RANDOM 84 mg/dL (74-106); MAGNESIUM 1.9 mg/dL (1.8-2.4); PHOSPHOROUS 3.6 mg/dL (2.5-4.9); POTASSIUM 5.2 mmol/L (3.5-5.1); SGOT/AST 19 U/L (15-37); SGPT/ALT 46 U/L (12-78); SODIUM 144 mmol/L (136-145); TOT PROT 6.4 g/dl (6.4-8.2)
[2017-09-12] MEDS: GABAPENTIN 300 MG CAPSULE (FP) PO SCH (09:53)
[2017-09-12] MEDS: POLYETHYLENE GLYCOL 3350 119 GM BTL PO SCH (09:53)
[2017-09-12] MEDS: PANTOPRAZOLE 40 MG TABLET (FP) PO SCH (09:53)
[2017-09-12] MEDS: CELECOXIB 200 MG CAPSULE PO SCH (09:55)
[2017-09-12 10:34] VITALS: BP 127/72; PULSE 74; TEMP 98.8
--- NOTE | 2017-09-12 12:59 | DS ---
Physical Exam: SUBJECTIVE: Patient seen and examined. Surgical area pain well controlled. Pt has moved bowel, tolerating orally, no fevers, no tingling, wants to leave today. Pt called orthopedic office and confirmed medication refills. OBJECTIVE: Vital Signs Period Temp Pulse Resp BP Sys/Coles Pulse Ox Last 24 Hr 98.2 F-99.7 F 74-84 18-20 100-128/53-72 98-98 Vital Signs Temp 98.8 F 09/12/17 08:00 Pulse 74 09/12/17 08:00 Resp 20 09/12/17 09:00 BP 127/72 09/12/17 08:00 Pulse Ox 98 09/12/17 09:00 Intake & Output 09/11/17 09/12/17 09/13/17 09/14/17 23:59 23:59 23:59 23:59 Intake Total 600 200 Balance 600 200 PHYSICAL EXAM GENERAL: The patient is awake, alert, and fully oriented, in no acute distress. LUNGS: Breath sounds equal, clear to auscultation bilaterally HEART: Regular rate and rhythm, S1, S2 without murmu ABDOMEN: Soft, nontender, nondistended, normoactive bowel sounds EXTREMITIES: 2+ pulses, warm, well-perfused, no edema. NEUROLOGICAL: AAO x3. Normal sensation bilaterally. Absent tingling. Able to move all extremities Musculoskeletal: Surgical dressing over spine posteriorly from cervical to lumbar region intact, dry and clean, no tenderness noted. LABS Laboratory Results - last 24 hr 09/12/17 09/12/17 07:45 07:45 WBC 4.9 D RBC 3.75 Hgb 11.5 Hct 33.7 MCV 90.0 MCH 30.6 MCHC 34.0 RDW 13.1 Plt Count 284 D MPV 8.3 Absolute Neuts (auto) 2.8 Neutrophils % 56.4 Lymphocytes % 31.4 Monocytes % 8.6 Eosinophils % 3.1 Basophils % 0.5 Nucleated RBC % 0 Sodium 144 Potassium 5.2 H Chloride 108 H Carbon Dioxide 29 Anion Gap 7 L BUN 16 Creatinine 0.8 Creat Clearance w eGFR > 60 Random Glucose 84 Calcium 8.8 Phosphorus 3.6 Magnesium 1.9 Total Bilirubin 0.5 AST 19 ALT 46 Alkaline Phosphatase 101 Total Protein 6.4 Albumin 3.0 L Acetaminophen (Tylenol -) 650 mg PO Q4H PRN PRN Reason: MODERATE PAIN Last Admin: 09/11/17 10:59 Dose: 650 mg Celecoxib (Celebrex -) 200 mg PO BID [facility] Cyclobenzaprine HCl (Flexeril -) 10 mg PO HS [facility] Last Admin: 09/10/17 21:41 Dose: 10 mg Dexamethasone Sodium Phosphate (Decadron Injection -) 4 mg IVPUSH ONCE PRN PRN Reason: NAUSEA AND/OR VOMITING Last Admin: 09/10/17 06:57 Dose: 4 mg Docusate Sodium (Colace -) 100 mg PO BID PRN PRN Reason: CONSTIPATION Gabapentin (Neurontin -) 300 mg PO DAILY [facility] Last Admin: 09/11/17 10:58 Dose: 300 mg Ondansetron HCl (Zofran Injection) 4 mg IVPUSH Q6H PRN PRN Reason: NAUSEA AND/OR VOMITING Ondansetron HCl (Zofran Injection) 4 mg IVPUSH Q4H PRN PRN Reason: NAUSEA AND/OR VOMITING Oxycodone HCl (Roxicodone -) 10 mg PO Q4H PRN PRN Reason: PAIN LEVEL 4 - 6 Last Admin: 09/11/17 16:05 Dose: 10 mg Pantoprazole Sodium (Protonix -) 40 mg PO DAILY [facility] Last Admin: 09/11/17 10:58 Dose: 40 mg Polyethylene Glycol (Miralax (For Daily Use) -) 17 gm PO DAILY [facility] Last Admin: 09/11/17 10:58 Dose: 17 gm Promethazine HCl (Phenergan Injection -) 12.5 mg IVPB Q6H PRN PRN Reason: NAUSEA AND/OR VOMITING Senna (Senna -) 2 tab PO HS [facility] Last Admin: 09/10/17 21:42 Dose: 2 tab Zolpidem Tartrate (Ambien -) 5 mg PO HS PRN PRN Reason: INSOMNIA Last Admin: 09/10/17 23:01 Dose: 5 mg Ambulatory Orders Acetaminophen [Tylenol] 650 mg PO PRN PRN 08/01/17 Celecoxib [Celebrex] 200 mg PO BID 08/01/17 Cyclobenzaprine HCl [Flexeril 10 mg] 10 mg PO HS 08/01/17 Esomeprazole Magnesium [Nexium 24Hr] 40 mg PO DAILY 08/01/17 Gabapentin [Neurontin] 300 mg PO DAILY 08/01/17 Oxycodone HCl [Oxycodone HCl ER] 30 mg PO PRN PRN 08/01/17 Zolpidem Tartrate [Ambien] 5 mg PO HS 08/01/17 HOSPITAL COURSE: Date of Admission:09/08/17 Date of Discharge: 09/12/17 Patient is a 62 year old female with significant past medical history of chronic back pain, chronic hip pain, Rheumatoid arthritis, Fibromyalgia, Anxiety came in to the hospital for an Elective surgery for back pain. # Thoracic myelopathy s/p Laminectomy T12 and Revision Laminectomies L1-L3 (); Pt came in for elective back surgery 4th). Tolerated surgery well, pain controlled, was ambulating and tolerating food. Had passed stool. Pt had EBL 75 ml, fluid replaced 1000 ml intraop. Spiked postop fever for one day which was resolved by using Incentive Spirometery. Pt resumed her home medications and will follow up with Dr Fernandez's office in 1- 2weeks. Pain medications were sent and instructions given. Pt will also follow up with her PMD in a week's time Minutes to complete discharge: 35 Discharge Summary Reason For Visit: SPINAL STENOSIS LUMBAR REGION Current Active Problems Fibromyalgia (Chronic) GERD (gastroesophageal reflux disease) (Chronic) Condition: Stable - Instructions Diet, Activity, Other Instructions: You were admitted to the hospital to undergo back surgery. You are now stable to be discharged home and follow up with your orthopedic surgeon. For pain medications, you will get refills from Dr. Fernandez. To prevent clots in your legs and lungs, avoid staying in bed. Ambulate as much as possible and as tolerated Make an appointment with Physical Therapy department at [facility] to schedule appointment for physical therapy. taper narcotics as improve, do not drive, operate heavy machinery or take important decisions alone while on these medications. Activity per physical therapy and as discussed with Dr. Calloway. Wound care instructions per Dr. Calloway. You may bear weight on both legs as tolerated. Follow up with Dr. Calloway today at his office. Referrals: Levi Fernandez MD [Staff Physician] - 1 Week Disposition: VNS/HOME HEALTH CARE - Home Medications Comprehensive Discharge Medication List: Ambulatory Orders Acetaminophen [Tylenol] 650 mg PO PRN PRN 08/01/17 Celecoxib [Celebrex] 200 mg PO BID 08/01/17 Cyclobenzaprine HCl [Flexeril 10 mg] 10 mg PO HS 08/01/17 Esomeprazole Magnesium [Nexium 24Hr] 40 mg PO DAILY 08/01/17 Gabapentin [Neurontin] 300 mg PO DAILY 08/01/17 Oxycodone HCl [Oxycodone HCl ER] 30 mg PO PRN PRN 08/01/17 Zolpidem Tartrate [Ambien] 5 mg PO HS 08/01/17 Miscellaneous Medical Supply [Outpatient Order] 1 each [facility] #1 [facility] [place] Miscellaneous Medical Supply [Outpatient Order] 1 each [facility] #1 [facility] [place] This patient is new to me today: No Emergency Visit: No Critical Care patient: No - Discharge Referral Referred to [facility] No
== END 2017-09-12 13:45 | disposition home health service (06) | DRG 310 ==
LOC: JSAMEDAYSX 06:15 → EDSTATUS 09:43 → J8W 17:55
PROVIDERS: ADMIT Orthopaedic Surgery Orthopaedic Surgery of the Spine; ATTEND Hospitalist
PROC: 00NX0ZZ Release Thoracic Spinal Cord, Open Approach (ICD-10-PCS; 2017-09-08)
PROC: 4A10X4G Monitoring of Central Nervous Electrical Activity, Intraoperative, External Approach (ICD-10-PCS; 2017-09-08)
PROC: 0QW004Z Revision of Internal Fixation Device in Lumbar Vertebra, Open Approach (ICD-10-PCS; principal; 2017-09-08 08:00)
DX: M48.05 Spinal stenosis, thoracolumbar region (principal); M06.9 Rheumatoid arthritis, unspecified; M79.7 Fibromyalgia; F41.9 Anxiety disorder, unspecified; Z68.34 Body mass index [BMI] 34.0-34.9, adult; E66.9 Obesity, unspecified; R50.82 Postprocedural fever; K21.9 Gastro-esophageal reflux disease without esophagitis; M54.15 Radiculopathy, thoracolumbar region
CPT/HCPCS: 36415; 72100-TC-FY; 76000-TC-FY; 80048; 80053; 83735; 84100; 85025; 85027; 86850; 86900; 86901; 94760; 97116-GP; 97161-GP; J0131; J1644

== ENCOUNTER 2020-02-25 07:57 | Day surgery (SDC) | payer OTHER, MEDICARE ==
[2020-02-23 13:46] VITALS: BMI 36.2
[2020-02-25] MEDS ORDERED: methylPREDNISolone ACET (DEPO) 40 MG/1 ML VIAL ONE (10:06)
[2020-02-25] MEDS ORDERED: EPINEPHrine 1:1,000 1 MG/1 ML - 30ML VIAL (INJECTION) ONE (10:07)
[2020-02-25] MEDS ORDERED: BUPIVACAINE HCL/PF 0.25% (2.5MG/ML) 10 ML VIAL ONE (10:07)
[2020-02-25] MEDS ORDERED: oxyCODONE HCL 5 MG TABLET PO ONE (10:21)
[2020-02-25] MEDS ORDERED: ONDANSETRON 4 MG/2 ML VIAL IVPUSH PRN (10:21)
[2020-02-25] MEDS ORDERED: PROPOFOL 20 ML ONE (10:26)
[2020-02-25] MEDS ORDERED: HYDROmorphone HCL/PF 1 MG/ML VIAL ONE (10:26)
[2020-02-25] MEDS ORDERED: MIDAZOLAM HCL 2 MG/2 ML SINGLE DOSE VIAL ONE (10:26)
[2020-02-25] MEDS ORDERED: LACTATED RINGERS SOLUTION 1,000 ML IV SCH (10:30)
[2020-02-25] MEDS ORDERED: ceFAZolin SODIUM 1 GM VIAL ONE (10:38)
[2020-02-25] MEDS ORDERED: DEXAMETHASONE SOD PHOSPHATE 4 MG/1 ML VIAL ONE (10:42)
[2020-02-25] MEDS ORDERED: EPHEDRINE SULFATE/0.9% NACL/PF 50 MG/10 ML SYRINGE NR ONE (10:58)
[2020-02-25] MEDS ORDERED: methylPREDNISolone ACET (DEPO) 80 MG/1 ML VIAL IM ONE (11:36)
[2020-02-25] MEDS ORDERED: BUPIVACAINE HCL/PF 0.25% (2.5MG/ML) 10 ML VIAL IJ ONE (11:36)
[2020-02-25 12:23] VITALS: TEMP 97.6
[2020-02-25 13:46] VITALS: BP 112/77; PULSE 69
== END 2020-02-25 14:15 | disposition home or self-care (01) ==
LOC: FASU 07:57
PROVIDERS: ATTEND Orthopaedic Surgery Orthopaedic Surgery of the Spine
PROC: 0SCC4ZZ Extirpation of Matter from Right Knee Joint, Percutaneous Endoscopic Approach (ICD-10-PCS; 2020-02-25)
PROC: 0SBD4ZZ Excision of Left Knee Joint, Percutaneous Endoscopic Approach (ICD-10-PCS; 2020-02-25)
PROC: 0SCD4ZZ Extirpation of Matter from Left Knee Joint, Percutaneous Endoscopic Approach (ICD-10-PCS; 2020-02-25)
PROC: 0SBC4ZZ Excision of Right Knee Joint, Percutaneous Endoscopic Approach (ICD-10-PCS; principal; 2020-02-25 11:06)
DX: M17.0 Bilateral primary osteoarthritis of knee (principal)
CPT/HCPCS: 94760